=== PATIENT | male | born 1970 | race Caucasian/White ===

== ENCOUNTER 2016-10-15 09:04 | Emergency (ER) | payer BC ==
[2016-10-15 10:39] LABS: HEMOGLOBIN 16.5 gm/dl (14.0-17.5); RED BLOOD COUNT 6.02 M/UL (4.20-5.50); WHITE BLOOD COUNT 8.3 K/UL (4.5-11.0)
[2016-10-15 11:03] LABS: BUN/CREATININE RATIO 9 (0-10)
== END 2016-10-15 16:25 | disposition home or self-care (01) ==
LOC: ER1 09:04
PROVIDERS: Physician Assistant
DX: R18.8 Other ascites (principal); I11.0 Hypertensive heart disease with heart failure; I50.9 Heart failure, unspecified
CPT/HCPCS: 36415; 71010; 76705; 80053; 81001; 82150; 82550; 82553; 83690; 83874; 84484; 85025; 87081; 87880; 93005; 96374; 96375; 99284; J2270; J2405; J7050; Q9962

== ENCOUNTER → 2016-11-22 | Outpatient (CLI) | payer BC | LOC: HEART 5 12:03 | DX: Z86.711 Personal history of pulmonary embolism (principal) | CPT/HCPCS: 71020-FX ==